=== PATIENT | female | born 1955 | race Caucasian/White ===

== ENCOUNTER 2020-12-05 12:14 | Inpatient (IN) | payer BC, SELFPAY ==
[~2020-12-05] VITALS: Ht 157.5 cm; Wt 59.9 kg
[2020-12-05] MEDS: NACL 0.9% 1,000 ML IV SCH (07:18)
[2020-12-05 12:19] VITALS: BP 155/94
[2020-12-05] MEDS ORDERED: NACL 0.9% 1,000 ML IV SCH ×2 (12:40→13:20)
--- NOTE | 2020-12-05 12:41 | NUR ---
65 Y/O FEMALE C/O UPPER ABDOMINAL PAIN, RADIATES TO CHEST. TENDER UPON PALPITATION, PAIN IS CONSISISTENT, 4X BOWEL SOUNDS, NORMOACTIVE. N&V, 9/10 PAIN. TAKES NO RX MEDS AT HOME, HAS NOT TAKEN ANY MEDS SINCE SYMTPOMS STARTED. LAST TIME PT ATE WAS 1700 12/04/20. PT STATES SHE HAD 8X EMESIS EPISODES 12/04/20. PT HAD EMESIS EPISODE DURING ASSSESSMENT. NO MEDICAL HX. HAS NOT COME INTO CONTACT WITH ANYONE WITH COVID, NO SYMPTOMS OF COUGH OR SOB. NKDA.
--- NOTE | 2020-12-05 12:41 | NUR ---
Note undone in EDM - 12/05/20 at 1630 by [email or web address] 65 Y/O FEMALE C/O UPPER ABDOMINAL PAIN, RADIATES TO CHEST. TENDER UPON PALPITATION, PAIN IS CONSISISTENT, 4X BOWEL SOUNDS, NORMOACTIVE. N&V, 10 PAIN. TAKES NO RX MEDS AT HOME, HAS NOT TAKEN ANY MEDS SINCE SYMTPOMS STARTED. LAST TIME PT ATE WAS 1700 12/04/20. PT STATES SHE HAD 8X EMESIS EPISODES 12/04/20. PT HAD EMESIS EPISODE DURING ASSSESSMENT. NO MEDICAL HX. HAS NOT COME INTO CONTACT WITH ANYONE WITH COVID, NO SYMPTOMS OF COUGH OR SOB. NKDA.
[2020-12-05 13:03] LABS: BASOPHILS # (AUTO) 0.1 K/uL (0.00-0.22); BASOPHILS % (AUTO) 0.5 % (0.0-2.0); HEMATOCRIT 42.8 % (36-48); HEMOGLOBIN 14.6 g/dL (12.0-16.0); MEAN CORPUSCULAR HEMOGLOBIN 29 pg (27-31); MEAN CORPUSCULAR HGB CONC 34 g/dL (33-37); MEAN CORPUSCULAR VOLUME 86.5 fL (80-94); MONOCYTES # (AUTO) 0.3 K/uL (0.8-1.0); MONOCYTES % (AUTO) 2.4 % (1.7-9.3); NEUTROPHILS # (AUTO) 11.6 K/uL (1.8-7.7); PLATELET COUNT (AUTO) 234 K/uL (140-450); RED BLOOD CELL COUNT(AUTO) 4.95 MIL/uL (4.20-5.40); RED CELL DISTRIBUTION WIDTH 13.4 % (11.6-13.7); WHITE BLOOD COUNT (AUTO) 12.9 K/uL (4.8-10.8)
[2020-12-05] MEDS ORDERED: ONDANSETRON 4 MG/2 ML VIAL IVP ONE (13:10)
[2020-12-05] MEDS ORDERED: MORPHINE SULFATE 4 MG/ML SYR IVP ONE (13:10)
[2020-12-05 13:11] LABS: LYMPHOCYTES % (AUTO) 7.6 % (20.5-51.1); NEUTROPHILS % (AUTO) 89.5 % (42.2-75.2)
[2020-12-05 13:19] LABS: ALBUMIN 4.5 g/dL (3.4-5.0); ANION GAP 15.7 (8-16); CARBON DIOXIDE 23.7 mmol/L (21-32); CREATININE 0.7 mg/dL (0.6-1.3); POTASSIUM 3.4 mmol/L (3.5-5.1); TOTAL BILIRUBIN 0.5 mg/dL (0.0-1.0)
[2020-12-05] MEDS ORDERED: metroNIDAZOLE 500 MG/NS PREMIX 100 ML IV ONE (13:20)
[2020-12-05] MEDS ORDERED: cefTRIAXone 1,000 MG VIAL ONE (13:27)
[2020-12-05 15:46] LABS: APPEARANCE,URINE CLEAR (CLEAR); BILIRUBIN,URINE NEGATIVE (NEGATIVE); BLOOD, URINE NEGATIVE (NEGATIVE); COLOR,URINE YELLOW (YELLOW); LEUKOCYTE ESTERASE ,URINE NEGATIVE (NEGATIVE); NITRITE, URINE NEGATIVE (NEGATIVE); UGLUCOSE NEGATIVE (NEGATIVE)
[2020-12-05] MEDS ORDERED: POTASSIUM CHLORIDE 10 MEQ TABER PO PRN (16:00)
[2020-12-05] MEDS ORDERED: LORazepam 2 MG/ML VIAL IM/IVP PRN (16:00)
[2020-12-05] MEDS ORDERED: ZOLPIDEM 5 MG TAB PO PRN (16:00)
[2020-12-05] MEDS ORDERED: MORPHINE SULFATE 2 MG/ML SYR IVP PRN (16:00)
[2020-12-05] MEDS ORDERED: DOCUSATE SODIUM 100 MG GELCAP PO PRN (16:00)
[2020-12-05] MEDS ORDERED: HYDROcodone/APAP 5/325 MG 1 TAB TAB PO PRN (16:00)
[2020-12-05] MEDS ORDERED: ONDANSETRON 4 MG/2 ML VIAL IM/IVP PRN (16:00)
[2020-12-05] MEDS ORDERED: MAG SULF 2000 MG/WATER PREMIX 50 ML IV PRN (16:00)
[2020-12-05] MEDS ORDERED: ACETAMINOPHEN 325 MG TAB PO PRN (16:00)
[2020-12-05 16:41] LABS: BARBITURATE, URINE NEGATIVE ng/ml (NEG <=200); BENZODIAZEPINE, URINE NEGATIVE ng/mL (NEG <=200); CANNABINOID, URINE NEGATIVE ng/mL (NEG <=50); COCAINE, URINE NEGATIVE ng/mL (NEG <=300); OPIATE, URINE POSITIVE ng/mL (NEG <=2000); PHENCYCLIDINE SCREEN,URINE NEGATIVE ng/mL (NEG <=25)
[2020-12-05 16:45] LABS: PROTHROMBIN TIME 9.4 secs (10.8-13.4)
[2020-12-05 16:58] LABS: CHOL/HDL RATIO 5.6 (1-4.5); PHOSPHORUS 2.9 mg/dL (2.5-4.9); THYROID STIMULATING HORMONE 1.15 uIU/mL (0.34-3.74)
--- NOTE | 2020-12-05 16:59 | NUR ---
Patient will be admitted to care of [facility]. Admited to MED SURG. Will go to room 104A. Belongings list completed. Report to TEN TEJADA.
--- NOTE | 2020-12-05 17:00 | NUR ---
ADMITTED PT FROM ER WITH CC OF ABDOMINAL PAIN. CURRENTLY PT DENIES NAUSEA OR VOMITING AND ABDOMINAL PAIN. PT ON RA. NO S/S OF SOB. DENIES CHEST PAIN. RIGHT AC PIV INTACT AND PATENT. ON NS @ 100 ML/HR IVF. BRP. AFEBRILE. PT IS KHMER SPEAKING ONLY. KEPT PT ON STANDARD PRECAUTION. WILL CONTINUE TO MONITOR.
--- NOTE | 2020-12-05 19:35 | NUR ---
HANDOFF REPORT GIVEN TO ROD MACHINE OPERATOR RN. PT IS CALM. NO S/S OF DISCOMFORT. DENIES ABDOMINAL PAIN. NO S/S OF NAUSEA OR VOMITING. NO CHANGE OF CONDITION.
[2020-12-05 20:00] VITALS: BP 105/45
--- NOTE | 2020-12-05 20:24 | NUR ---
BP RE CHECK 107/60 - BP MAP 76 , AAOX4 , DENIES ABDL .PAIN AT THIS TIME . WILL CONT. TO MONITOR - CALL LIGHT WITHIN REACH . REMINDS NPO
[2020-12-05] MEDS ORDERED: PIPERACILLIN/TAZOBACTAM 3.375 GM VIAL IV ONE (22:09)
[2020-12-05] MEDS: PIPERACILLIN/TAZOBACTAM 3.375 GM in DEXTROSE 5% 50 ML IV SCH (22:45)
--- NOTE | 2020-12-06 | NUR ---
MADE ROUNDS , DENIES PAIN - ASSIST PT TO GO TO RESTROOM - VOIDED FREELY NO COMPLAIN MADE . CALL LIGHT WITHIN REACH .
[2020-12-06] MEDS: NACL 0.9% 1,000 ML IV SCH ×3 (02:00→12:43)
[2020-12-06 04:00] VITALS: BP 114/53
--- NOTE | 2020-12-06 04:00 | NUR ---
O2 SAT WNL . NO S/SX OF ACUTE DISTRESS NOTED , CALL LIGHT WITHIN REACH .
--- NOTE | 2020-12-06 05:00 | NUR ---
BP RE CHECK - 110 /60 - DENIES PAIN .
[2020-12-06] MEDS ORDERED: PIPERACILLIN/TAZOBACTAM 3.375 GM VIAL IV ONE ×2 (05:02→20:57)
[2020-12-06] MEDS: PIPERACILLIN/TAZOBACTAM 3.375 GM in DEXTROSE 5% 50 ML IV SCH ×3 (05:05→21:11)
--- NOTE | 2020-12-06 07:18 | NUR ---
OR CALL ME - THEY SAID PER DR. RICHARDSON PT IS FOR SURGERY TODAY - DNO ORDER WHAT THE PROCEDURE - BUT THERE IS IN OR DESK SCHED. - NO ONE ENDORSED TO ME ABOUT THIS - FOR CXR , EKG STAT . - CONSENT WILL PRINT AND WILL ENDORSE .
[2020-12-06] MEDS ORDERED: BUPIVACAINE-MPF/EPI 0.25% 10 ML VIAL INJ ONE (07:28)
--- NOTE | 2020-12-06 07:50 | NUR ---
ENDORSED - PT - STABLE . CONSENT PRINTED OUT ON;Y - NO CONSENT YET .
--- NOTE | 2020-12-06 07:55 | NUR ---
RECEIVED BEDSIDE ENDORSEMENT FROM NIGHTSWAFT NURSE FOR CONTINUITY OF CARE.
[2020-12-06 08:00] VITALS: BP 112/62
--- NOTE | 2020-12-06 08:10 | NUR ---
VITAL SIGNS OBTAINED.
--- NOTE | 2020-12-06 08:30 | NUR ---
PATIENT TAKEN TO SURGERY. AM MEDS HELD.
--- NOTE | 2020-12-06 08:42 | NUR ---
PATIENT HAS BEEN SCREENED AND CATEGORIZED LOW NUTRITION RISK. PATIENT WILL BE SEEN WITHIN 7 DAYS OF ADMISSION. 12/12/[address]
[2020-12-06] MEDS ORDERED: ROCURONIUM 50 MG/5 ML VIAL IV ONE (09:20)
[2020-12-06] MEDS ORDERED: DEXAMETHASONE 4 MG/ML VIAL ONE (09:20)
[2020-12-06] MEDS ORDERED: SUCCINYLCHOLINE CHLORIDE 200 MG/10 ML VIAL IVP ONE (09:20)
[2020-12-06] MEDS ORDERED: MIDAZOLAM 2 MG/2 ML VIAL ONE (09:20)
[2020-12-06] MEDS ORDERED: SEVOFLURANE 250 ML BTL INH ONE (09:20)
[2020-12-06] MEDS ORDERED: PROPOFOL 200 MG/20 ML VIAL IV ONE (09:20)
[2020-12-06] MEDS ORDERED: KETOROLAC 30 MG/ML VIAL ONE (09:20)
[2020-12-06] MEDS ORDERED: SUGAMMADEX SODIUM 200 MG/2 ML VIAL IV ONE (09:20)
[2020-12-06] MEDS ORDERED: fentaNYL citrate 0.05 MG/ML VIAL ONE (09:20)
[2020-12-06] MEDS ORDERED: HYDROcodone/APAP 5/325 MG 1 TAB TAB PO PRN (09:45)
[2020-12-06] MEDS ORDERED: ONDANSETRON 4 MG/5 ML ORASYR GT PRN (09:45)
[2020-12-06] MEDS ORDERED: HYDROmorphone 1 MG/ML AMP IVP PRN ×2 (09:45→10:05)
[2020-12-06] MEDS ORDERED: diphenhydrAMINE 50 MG/ML VIAL IVP PRN (10:05)
[2020-12-06] MEDS ORDERED: MEPERIDINE 25 MG/ML SYR IVP PRN (10:05)
[2020-12-06] MEDS ORDERED: ONDANSETRON 4 MG/2 ML VIAL IVP PRN (10:05)
[2020-12-06] MEDS: LACTATED RINGERS 1,000 ML IV SCH ×2 (10:05→18:25)
--- NOTE | 2020-12-06 11:43 | NUR ---
PATIENT RETURNED FROM SURGERY. HAS TAKE HOME RX IN CHART. VITAL SIGNS UPON ARRIVAL: BP 128/60; PULSE 69; SPO2 99%. PATIENT DENIES PAIN. SAFETY MEASURES IN PLACE. WILL CONTINUE TO MONITOR.
[2020-12-06 12:00] VITALS: BP 112/62
--- NOTE | 2020-12-06 14:14 | NUR ---
SOCIAL WORK NOTE: Patient's Orientation Unable To Assess Information Provided By SHAN WONG - DAUGHTER Comments SW WAS UNABLE TO MEET PATIENT AT BEDSIDE. SW COMPLETED ASSESSMENT WITH PATIENT'S DAUGHTER. Forepart Laster, Realtionship and Phone Number SHAN WISE [phone] [facility] Power of F[employer] L[employer] Operator No Does Patient Have a POLST No Identifying Problems No Social Work Triggers Is A Social Work Consult Needed No Mandate Report Filed No Explanation Of Identifying Problems PATIENT IS A 65-YEAR-OLD FEMALE ADMITTED FOR CHOLECYSTITIS. PATIENT HAS NO REPORTED PMHX. PATIENT'S DAUGHTER REPORTED NO HX OF MENTAL HEALTH OR SUBSTANCE ABUSE. Admitted From Home Pre-Admission Level Of Functioning Status Independent/Ambulatory Prior Resources/Services Used In Last 12 Months No Prior Resources Used Prior DME No Prior DME Used Dialysis Comments N/A Living Situation Lives With Family House Patient Had Caregiver No Financial Issues No Known Financial Issue Referral To The Financial Counselor Needed No Factors/Needs No D/C Needs Identified Pt/Rep Participated In Discharge Plan Yes Patient/Family Agress With Discharge Plan Yes Discharge Plan Comments TENTATIVE DISCHARGE PLAN IS FOR PATIENT TO RETURN HOME. DC Plan Status Initiated
--- NOTE | 2020-12-06 14:18 | NUR ---
ADMINISTERED PRESCRIBED MEDS PER MD ORDER. PATIENT TOLERATED WELL. MEDICATION EDUCATION PROVIDED. PATIENT VERBALIZED UNDERSTANDING. SAFETY MEASURES IN PLACE. WILL CONT TO MONITOR.
--- NOTE | 2020-12-06 15:12 | NUR ---
DISCHARGE PLANNING: THIS IS A 65 Y/O FEMALE PATIENT FROM HOME, WHO CAME IN DUE TO ABDOMINAL PAIN. NO PAST MEDICAL HISTORY. INITIAL DIAGNOSIS OF CHOLECYSTITIS. CURRENT LABS INCLUDE WBC 12.9, H/H 14.6/42.8, NA/K 137/3.4, BUN/CREA 17/0.7, LIPASE 204. S/P LAP ARIA TODAY BY DR. MOSLEY. CONTACTED XIMNEA ASH OF [facility] AT [phone]. PER MIHIR, RSVP Law [facility] IS THE ONE DELEGATED AND CM ASSIGNED IS ANDREW. CONTACTED XIMENA MORALES OF [facility] AT [phone]. PER XIMENA MORALES, THEY JUST ADDED THE PATIENT ON THEIR SYSTEM AND INTAKE IS STILL WORKING ON IT. PER ANDREW SHE CAN PROVIDE ME WITH THE REFERENCE NUMBER [id number]. SHE STATED, ONCE EVERYTHING IS IN SHE WILL REVIEW AND WILL GENERATE THE AUTH AND PROBABLY WE WILL GET THE HARD COPY LATER TODAY OR TOMORROW.
[2020-12-06 16:00] VITALS: BP 105/61
--- NOTE | 2020-12-06 19:35 | NUR ---
RECEIVED PT AAOX4 , S/P LAP. CHOLECYSTECTOMY , 4 SURGICAL INCISSIONS ON ABD. ASSESS - DRY AND INTACT - DEL . SOFT ABD. NO SIGN OF BLEEDING NOTED . DENIES PAIN AT THIS TIME . DIET STARTED AND TOLERATED . WILL CONT. TO MONITOR .
[2020-12-06 19:53] LABS: BASOPHILS % (AUTO) 0.1 % (0.0-2.0); HEMATOCRIT 33.8 % (36-48); HEMOGLOBIN 11.4 g/dL (12.0-16.0); LYMPHOCYTES # (AUTO) 0.6 K/uL (2.5-16.5); LYMPHOCYTES % (AUTO) 7.2 % (20.5-51.1); MEAN CORPUSCULAR HEMOGLOBIN 30 pg (27-31); MEAN CORPUSCULAR HGB CONC 34 g/dL (33-37); MONOCYTES # (AUTO) 0.3 K/uL (0.8-1.0); MONOCYTES % (AUTO) 3.5 % (1.7-9.3); NEUTROPHILS % (AUTO) 89.2 % (42.2-75.2); PLATELET COUNT (AUTO) 176 K/uL (140-450); RED BLOOD CELL COUNT(AUTO) 3.85 MIL/uL (4.20-5.40); RED CELL DISTRIBUTION WIDTH 13.1 % (11.6-13.7)
[2020-12-06 20:00] VITALS: BP 105/48
[2020-12-06 20:06] LABS: ANION GAP 11.6 (8-16); CARBON DIOXIDE 26.6 mmol/L (21-32); CREATININE 1.1 mg/dL (0.6-1.3); POTASSIUM 4.2 mmol/L (3.5-5.1)
--- NOTE | 2020-12-06 22:00 | NUR ---
VOIDED FREELY - NO COMPLAIN MADE
[2020-12-07] VITALS: BP 114/62
--- NOTE | 2020-12-07 | NUR ---
MADE ROUNDS , NO S/SX OF ACUTE DISTRESS NOTED . CALL LIGHT WITHIN REACH .
[2020-12-07] MEDS: LACTATED RINGERS 1,000 ML IV SCH ×2 (02:45→11:05)
[2020-12-07 04:00] VITALS: BP 107/56
[2020-12-07] MEDS: PIPERACILLIN/TAZOBACTAM 3.375 GM in DEXTROSE 5% 50 ML IV SCH ×2 (05:19→13:00)
[2020-12-07 06:26] LABS: BASOPHILS % (AUTO) 0.1 % (0.0-2.0); HEMATOCRIT 30.4 % (36-48); HEMOGLOBIN 10.5 g/dL (12.0-16.0); LYMPHOCYTES # (AUTO) 1.1 K/uL (2.5-16.5); LYMPHOCYTES % (AUTO) 11.2 % (20.5-51.1); MEAN CORPUSCULAR HEMOGLOBIN 30 pg (27-31); MEAN CORPUSCULAR HGB CONC 35 g/dL (33-37); MEAN CORPUSCULAR VOLUME 87.6 fL (80-94); MONOCYTES # (AUTO) 0.9 K/uL (0.8-1.0); MONOCYTES % (AUTO) 9.4 % (1.7-9.3); NEUTROPHILS # (AUTO) 7.6 K/uL (1.8-7.7); NEUTROPHILS % (AUTO) 79.3 % (42.2-75.2); PLATELET COUNT (AUTO) 154 K/uL (140-450); RED BLOOD CELL COUNT(AUTO) 3.47 MIL/uL (4.20-5.40); RED CELL DISTRIBUTION WIDTH 13.4 % (11.6-13.7); WHITE BLOOD COUNT (AUTO) 9.6 K/uL (4.8-10.8)
[2020-12-07 06:57] LABS: CARBON DIOXIDE 24.1 mmol/L (21-32); CREATININE 0.7 mg/dL (0.6-1.3); POTASSIUM 4.1 mmol/L (3.5-5.1)
[2020-12-07 07:31] LABS: PHOSPHORUS 2.9 mg/dL (2.5-4.9)
--- NOTE | 2020-12-07 07:40 | NUR ---
ENDORSED - PT - STABLE .
--- NOTE | 2020-12-07 07:45 | NUR ---
RECEIVED BEDSIDE ENDORSEMENT FROM NIGHTSMEFT NURSE FOR CONTINUITY OF CARE.
[2020-12-07 08:00] VITALS: BP 119/53
[2020-12-07] MEDS: NACL 0.9% 1,000 ML IV SCH (08:00)
[2020-12-07] MEDS ORDERED: IBUP-2213 PO (10:23)
--- NOTE | 2020-12-07 10:33 | NUR ---
ADMINISTERED PRESCRIBED MEDS AND PRN MED FOR 4/10 ABD PAIN ORDERED BY MD. PATIENT TOLERATED WELL. MEDICATION EDUCATION REINFORCEMENT NEEDED DUE TO LANGUAGE BARRIER. INCISION ASSESSED, CLEAN DRY AND INTACT; NO SWELLING/BRUISING/DRAINAGE, DEL. STANDBY ASSIST TO BATHROOM. SAFETY MEASURES IN PLACE. WILL CONT TO MONITOR.
[2020-12-07 12:00] VITALS: BP 119/53
[2020-12-07 13:28] VITALS: BP 119/53
--- NOTE | 2020-12-07 15:08 | NUR ---
PATIENT IS DISCHARGED. DISCHARGE PAPERWORK PRINTED, REVIEWED AND SIGNED BY PATIENT. PATIENT VERBALIZED UNDERSTANDING. PATIENT GIVEN RX AND RELIEF FROM WORK RX SIGNED BY MD. REMOVED ID BAND AND IV LINE. PATIENT GATHERED ALL PERSONAL BELONGINGS AND ESCORTED TO LOBBY FOR SOFT WATER MECHANIC BY RELATIVE. PATIENT IS STABLE.
== END 2020-12-07 15:09 | disposition home or self-care (01) | DRG 419 ==
LOC: MED 12:14 → MTU 16:00
PROC: 0FT44ZZ Resection of Gallbladder, Percutaneous Endoscopic Approach (ICD-10-PCS; principal; 2020-12-07)
DX: K81.0 Acute cholecystitis (principal); Z20.822 Contact with and (suspected) exposure to COVID-19; E87.6 Hypokalemia; E78.5 Hyperlipidemia, unspecified; E86.0 Dehydration
CPT/HCPCS: 36415; 71045; 76705; 80048; 80053; 80305; 81003; 83036; 83605; 83690; 83735; 84100; 84134; 84436; 84443; 84484; 85025; 85610; 85730; 88304; 93005; 96361; 96365; 96367; 96375; 99285; J0330; J0696; J1100; J1644; J1885; J2250; J2270; J2405; J2543; J2704; J3010; J3490; J7030; J7060